=== PATIENT | male | born 1995 | race African-American/Black ===

== ENCOUNTER 2017-10-27 14:08 | Emergency (ER) | payer OTHER ==
[~2017-10-27] VITALS: Ht 177.8 cm; Wt 49.9 kg
[2017-10-27 15:43] LABS: ABSOLUTE NEUTROPHILS 1.1 thou/uL (1.4-8.2); BASOPHILS 1.1 % (0.0-2.0); EOSINOPHILS 6.2 % (0.0-3.0); HEMOGLOBIN 10.2 gm/dL (14.0-18.0); LYMPHOCYTES 55.3 % (24.0-44.0); MCHC 31.7 g/dL (28.0-37.0); MCV 75.9 fL (80.0-100.0); MONOCYTES 7.3 % (1.0-8.0); PLATELET COUNT 167 thou/uL (150-400); POLYS 30.1 % (36.0-66.0); RBC 4.22 mil/uL (4.50-6.00); RDW 15.2 % (10.5-14.5); WBC 3.7 thou/uL (4.0-11.0)
[2017-10-27 15:53] LABS: CALCIUM 9.2 mg/dL (8.5-10.1); CREATININE 1.1 mg/dL (0.7-1.3); POTASSIUM 3.6 mmol/L (3.5-5.1)
[2017-10-27] MEDS ORDERED: TIZANIDINE HCL4 MG PO (16:14)
[2017-10-27] MEDS ORDERED: IBUPROFEN 600600 M1 PO (16:14)
[2017-10-27 16:45] VITALS: BP 104/58
== END 2017-10-27 17:48 | disposition home or self-care (01) ==
LOC: ER 14:08
PROVIDERS: Nurse Practitioner
DX: R51 Headache (principal); R10.32 Left lower quadrant pain